=== PATIENT | female | born 1990 | race Native Hawaiian/Other Pacific Islander ===

== ENCOUNTER 2021-04-01 16:01 | Outpatient (CLI) | payer BC ==
[2021-04-01 16:47] LABS: PLATELET COUNT 319 K/uL (152-353)
[2021-04-01 17:01] LABS: POTASSIUM 3.8 mmol/L (3.6-5.2)
== END 2021-04-01 21:27 | disposition home or self-care (01) ==
LOC: LABW 16:01
PROVIDERS: ATTEND Physician Assistant
DX: R53.83 Other fatigue (principal); K92.1 Melena
CPT/HCPCS: 36415; 80053; 82306; 82607; 82746; 85027; 85652; 86038; 86430; 86677